=== PATIENT | female | born 1995 | race Caucasian/White ===

== ENCOUNTER 2018-01-28 11:03 | Emergency (ER) | payer BC ==
[2018-01-28] MEDS: DEXAMETHASONE 10 MG/ML 1 ML INJ PO (11:45)
== END 2018-01-28 11:55 | disposition home or self-care (01) ==
LOC: FTE 11:03
DX: H92.03 Otalgia, bilateral (principal); J45.909 Unspecified asthma, uncomplicated
CPT/HCPCS: 99283

== ENCOUNTER 2018-03-23 23:03 | Emergency (ER) | payer BC ==
[2018-03-24] MEDS: IPRATROPIUM (NEB) 0.5 MG/2.5 ML AMP HHN (00:07)
[2018-03-24] MEDS: ALBUTEROL 0.083% (NEB) 2.5 MG/3 ML AMP HHN (00:07)
[2018-03-24] MEDS: DEXAMETHASONE 10 MG/ML 1 ML INJ IM (00:24)
== END 2018-03-24 01:10 | disposition home or self-care (01) ==
LOC: FTE 03-24 01:10
DX: J45.901 Unspecified asthma with (acute) exacerbation (principal)
CPT/HCPCS: 94664; 96372; 99284-25